=== PATIENT | female | born 1995 ===

== ENCOUNTER 2018-08-28 01:42 | Emergency (ER) | payer SELFPAY ==
[2018-08-28] MEDS ORDERED: Sodium Chloride 0.9% 1,000 ML IV STA (02:19)
--- NOTE | 2018-08-28 02:27 | ED PDOC ---
HPI: Abdomen Time Seen by Provider: 08/28/18 02:03 Chief Complaint (Nursing): Back Pain Chief Complaint (Provider): abdominal pain History Per: Patient History/Exam Limitations: no limitations Onset/Duration Of Symptoms: Hrs (8), Waxing/Waning Current Symptoms Are (Timing): Still Present Location Of Pain/Discomfort: RUQ Additional Complaint(s): 22 y/o female presents for evaluation of intermittent right upper abdominal pain x 8 hours. Denies fever, nausea/vomiting, chest pain, shortness of breath, back pain, dysuria, hematuria. No medication taken for relief thus far Past Medical History Reviewed: Historical Data, Nursing Documentation, Vital Signs Vital Signs: Last Vital Signs Temp 98 F 08/28/18 01:50 Pulse 76 08/28/18 01:50 Resp 17 08/28/18 01:50 BP 128/78 08/28/18 01:50 Pulse Ox 98 08/28/18 01:50 - Medical History PMH: No Chronic Diseases - Surgical History Surgical History: No Surg Hx - Family History Family History: States: No Known Family Hx - Living Arrangements Living Arrangements: With Family - Allergies Allergies/Adverse Reactions: Allergies Allergy/AdvReac Type Severity Reaction Status Date / Time No Known Allergies Allergy Verified 08/28/18 02:19 Review of Systems ROS Statement: Except As Marked, All Systems Reviewed And Found Negative Gastrointestinal: Positive for: Abdominal Pain Physical Exam - Reviewed Nursing Documentation Reviewed: Yes Vital Signs Reviewed: Yes - Physical Exam Appears: Positive for: Well, Non-toxic, No Acute Distress Head Exam: Positive for: ATRAUMATIC, NORMAL INSPECTION, NORMOCEPHALIC Skin: Positive for: Normal Color Eye Exam: Positive for: Normal appearance ENT: Positive for: Normal ENT Inspection Cardiovascular/Chest: Positive for: Regular Rate, Rhythm Respiratory: Positive for: Normal Breath Sounds Gastrointestinal/Abdominal: Positive for: Bowel Sounds, Soft, Tenderness (RUQ) Back: Positive for: Normal Inspection Extremity: Positive for: Normal ROM Neurologic/Psych: Positive for: Alert, Oriented (x3) - Laboratory Results Result Diagrams: 08/28/18 02:44 08/28/18 02:44 - ECG O2 Sat by Pulse Oximetry: 98 - Progress ED Course And Treament: -cbc -cmp -lipase -RUQ u/s -IV fluids -IV toradol -upreg -udip -urinalysis Right upper quadrant ultrasound. Indication: Abdominal pain. Technique: Real-time ultrasound images were obtained. Findings: The liver is normal in size measuring 16.9 cm. Normal gallbladder wall thickness measuring 1.9 mm. Unremarkable gallbladder. Nondilated common bile duct measuring 3.2 mm. Limited visualization of the pancreas secondary to gaseous bowel distention. Unremarkable IVC. The aorta is not aneurysmal measuring 1.5 cm. Unremarkable right kidney measuring 10.6x4.9x4.7 cm. Impression: Unremarkable exam Maalox given Patient educated on findings, discharged with instructions to follow up PMD within 2-3 days Advised OTC anti-gas medication Return precautions given Disposition - Clinical Impression Clinical Impression: Abdominal discomfort - Patient ED Disposition Is Patient to be Admitted: No Counseled Patient/Family Regarding: Studies Performed, Diagnosis, Need For Followup - Disposition Referrals: [facility] [Outside] Disposition: Routine/Home Disposition Time: 03:51 Condition: IMPROVED Instructions: Acute Abdomen (Belly Pain) Forms: [employer] (Barbadian)
[2018-08-28 02:59] LABS: BASO # 0.1 K/uL (0.0-0.2); BASO % 0.6 % (0.0-2.0); EOS # 0.2 K/uL (0.0-0.7); EOS % 1.9 % (0.0-4.0); HEMOGLOBIN 11.7 g/dL (12.0-16.0); LYMPH # 2.2 K/uL (1.0-4.3); LYMPH % 21.5 % (20.0-40.0); MEAN CELL VOLUME 80.1 fl (81.0-99.0); MEAN CORPUSCULAR HEMOGLOBIN 25.6 pg (27.0-31.0); MEAN CORPUSCULAR HGB CONC 31.9 g/dL (33.0-37.0); MEAN PLATELET VOLUME 8.2 fl (7.2-11.7); MONO # 0.8 K/uL (0.0-0.8); MONO % 7.6 % (0.0-10.0); NEUT % 68.4 % (50.0-75.0); NRBC % 0.1 % (0.0-0.0); RBC 4.58 Mil/uL (3.80-5.20); RED CELL DISTRIBUTION WIDTH 16.2 % (11.5-14.5); WHITE BLOOD COUNT 10.3 K/uL (4.8-10.8)
[2018-08-28 03:02] LABS: SQUAMOUS EPITHIAL 6 /hpf (0-5); URINE BILIRUBIN NEGATIVE (NEGATIVE); URINE BLOOD NEGATIVE (NEGATIVE); URINE CLARITY SLIGHTY-CLOUDY (Clear); URINE COLOR YELLOW (YELLOW); URINE GLUCOSE (UA) NEG (NEGATIVE); URINE HYALINE CAST 0-2 /hpf (0-2); URINE LEUKOCYTE ESTERASE NEG Leu/uL (Negative); URINE PROTEIN NEGATIVE (NEGATIVE)
[2018-08-28 03:12] LABS: ALBUMIN 4.2 g/dL (3.5-5.0); ALT/SGPT 22 U/L (9-52); AST/SGOT 30 U/L (14-36); BLOOD UREA NITROGEN 12 mg/dl (7-17); CALCIUM 8.9 mg/dL (8.4-10.2); GFR NON-AFRICAN AMERICAN > 60; LIPASE 63 U/L (23-300)
[2018-08-28] MEDS ORDERED: Alum-Mag Hydrox-Simethicone Susp (30 mL) PO STA (03:45)
[2018-08-28] MEDS ORDERED: Alum-Mag Hydrox-Simethicone Susp (30 mL) ONE (03:57)
[2018-08-28 04:41] VITALS: BP 124/73; PULSE 63; RESP 18; TEMP 97.7; O2SAT 100
--- NOTE | 2018-08-28 10:51 | US ---
Date of service: 08/28/2018 HISTORY: RUQ pain COMPARISON: None. TECHNIQUE: Sonographic evaluation of the right upper quadrant of the abdomen. FINDINGS: LIVER: Measures 16.9 cm in length. Normal echogenicity of the liver parenchyma. No mass. No intrahepatic bile duct dilatation. GALLBLADDER: Unremarkable. No gallstones. COMMON BILE DUCT: Measures 3 mm. No stones. No dilatation. PANCREAS: Unremarkable as visualized. No mass. No ductal dilatation. RIGHT KIDNEY: Measures 12.6 x 4.9 x 4.7 cm in length. Normal echogenicity. No calculus, mass, or hydronephrosis. AORTA: No aneurysmal dilatation. IVC: Unremarkable. OTHER FINDINGS: None . IMPRESSION: Unremarkable right upper quadrant ultrasound
== END 2018-08-28 04:37 | disposition home or self-care (01) ==
LOC: H.ER 01:42
DX: R10.9 Unspecified abdominal pain (principal)
CPT/HCPCS: 76705; 80053; 81003; 81025; 83690; 85025; 96360; 99284; J1885; J7030

== ENCOUNTER 2018-12-16 12:41 | Emergency (ER) | payer SELFPAY ==
[2018-12-16 12:55] VITALS: RESP 18; O2SAT 100
[2018-12-16] MEDS ORDERED: Albuterol-Ipratrop 3 mg / 0.5 (3 ml) UD INH STA ×2 (13:10→15:32)
--- NOTE | 2018-12-16 13:28 | ED PDOC ---
HPI: SOB/CHF/COPD Time Seen by Provider: 12/16/18 12:55 Chief Complaint (Nursing): Shortness Of Breath Chief Complaint (Provider): Shortness Of Breath History Per: Patient History/Exam Limitations: no limitations Onset/Duration Of Symptoms: Days (2) Additional Complaint(s): 23 y/o female presents to the ED complaining of asthma for the last 2 days. Patient states she has an albuterol pump ay home that it does not work and reports her last asthma attack was 1 year ago. She states what usually trigger her asthma is seasonal allergies and has been suffering for last few days. Patient is complaining of chest tightness due to asthma with minimal dry cough. Patient notes she does not have a PMD/ Patient denies fever, vomiting, or any nasal congestion. PMD: non provided Past Medical History Reviewed: Historical Data, Nursing Documentation, Vital Signs Vital Signs: Last Vital Signs Temp 98.2 F 12/16/18 12:51 Pulse 92 H 12/16/18 12:51 Resp 18 12/16/18 12:51 BP 125/93 H 12/16/18 12:51 Pulse Ox 100 12/16/18 12:51 Primary Care Provider: FAMILY PROVIDER,NO - Medical History PMH: Asthma Denies: Chronic Kidney Disease - Surgical History Surgical History: No Surg Hx - Family History Family History: States: Unknown Family Hx - Social History Current smoker - smoking cessation education provided: Yes (Marijuana) Alcohol: Occasional - Home Medications Home Medications: Ambulatory Orders Medication Instructions Recorded Albuterol HFA [Ventolin HFA 90 1 - 2 puff IH Q4H PRN #1 bottle 12/16/18 mcg/actuation (8 g)] predniSONE [Prednisone] 40 mg PO DAILY #8 tab 12/16/18 - Allergies Allergies/Adverse Reactions: Allergies Allergy/AdvReac Type Severity Reaction Status Date / Time No Known Allergies Allergy Verified 08/28/18 02:19 Wells Criteria for PE - Wells Criteria for Pulmonary Embolism Clinical Signs and Symptoms of DVT: No P.E is #1 Diagnosis, or Equally Likely: No Heart Rate >100: No Immobilization at least 3 days;Surgery previous 4 weeks: No Previous, objectively diagnosed PE or DVT: No Hemoptysis: No Malignancy w/treatment within 6 months, or palliative: No Total Score: 0 Review of Systems ROS Statement: Except As Marked, All Systems Reviewed And Found Negative Constitutional: Negative for: Fever Respiratory: Positive for: Cough Gastrointestinal: Negative for: Vomiting Physical Exam - Reviewed Nursing Documentation Reviewed: Yes Vital Signs Reviewed: Yes - Physical Exam Appears: Positive for: Well, Non-toxic, No Acute Distress Head Exam: Positive for: ATRAUMATIC, NORMAL INSPECTION, NORMOCEPHALIC Skin: Positive for: Normal Color, Warm, Dry Eye Exam: Positive for: EOMI, Normal appearance, PERRL ENT: Positive for: Normal ENT Inspection Neck: Positive for: Normal, Painless ROM, Supple Cardiovascular/Chest: Positive for: Regular Rate, Rhythm. Negative for: Murmur Respiratory: Positive for: Normal Breath Sounds. Negative for: Decreased Breath Sounds, Accessory Muscle Use, Crackles, Rales, Stridor, Wheezing, Respiratory Distress, Plerual Rub Gastrointestinal/Abdominal: Positive for: Normal Exam, Soft. Negative for: Tenderness Back: Positive for: Normal Inspection. Negative for: L CVA Tenderness, R CVA Tenderness Extremity: Positive for: Normal ROM Neurological/Psych: Positive for: Awake, Alert, Normal Tone, Oriented (x3). Negative for: Motor/Sensory Deficits - ECG O2 Sat by Pulse Oximetry: 100 Medical Decision Making Medical Decision Making: Time:1256 Impression: Asthma exacerbation. Plan: -EKG -Albuterol -Prednisone -Peak flow 1430 on reeval of pt, pt in no distress, awake and alert, airway intact, no respiratory distress, sleeping comfortably and less wheezing 1515 pt improved will dc patient with steroids and another pump of albuterol MDI also referred pt to clinic for ouptt follow up pt agreeable to plan Scribe Attestation: Documented by Elise Negron, acting as a scribe for Pam Randall Provider Scribe Attestation: All medical record entries made by the Scribe were at my direction and personally dictated by me. I have reviewed the chart and agree that the record accurately reflects my personal performance of the history, physical exam, medical decision making, and the department course for this patient. I have also personally directed, reviewed, and agree with the discharge instructions and disposition. Disposition - Clinical Impression Clinical Impression: Asthma - Patient ED Disposition Is Patient to be Admitted: No Counseled Patient/Family Regarding: Studies Performed, Diagnosis, Need For F ollowup - Disposition Referrals: [facility] [Outside] [facility] [Outside] Disposition: Routine/Home Disposition Time: 15:35 Condition: IMPROVED Additional Instructions: follow up in the clinic in 1-2 days return to the ED with any worsening or concerning symptoms Prescriptions: Albuterol HFA [Ventolin HFA 90 mcg/actuation (8 g)] 1 - 2 puff IH Q4H PRN #1 bottle PRN Reason: Wheezing predniSONE [Prednisone] 40 mg PO DAILY #8 tab Instructions: Asthma, Adult (DC) Forms: [employer] (Faroese), [facility] ED School/Work Excuse
[2018-12-16] MEDS ORDERED: Albuterol-Ipratrop 3 mg / 0.5 (3 ml) UD ONE ×2 (13:47→15:48)
--- NOTE | 2018-12-16 15:52 | CARD ---
APPROVED REPORT Date of service: 12/16/2018 EKG Measurement Heart [id number] <Conclusion> Normal sinus rhythm Normal ECG
[2018-12-16 15:54] VITALS: BP 122/60; PULSE 75
[2018-12-16 16:18] VITALS: TEMP 98.7
== END 2018-12-16 16:18 | disposition home or self-care (01) ==
LOC: H.ER 12:41
DX: J45.909 Unspecified asthma, uncomplicated (principal)